=== PATIENT | male | born 1960 | race Caucasian/White ===

== ENCOUNTER 2018-06-13 15:45 | Outpatient (RCR) | payer MEDICAID | END 2018-07-17 | disposition home or self-care (01) | LOC: WSST | DX: R41.3 Other amnesia (principal); F43.22 Adjustment disorder with anxiety ==

== ENCOUNTER → 2019-11-21 | Outpatient (CLI) | payer OTHER | LOC: COL.RAD 14:23 | DX: E11.42 Type 2 diabetes mellitus with diabetic polyneuropathy (principal); G31.84 Mild cognitive impairment of uncertain or unknown etiology; M25.531 Pain in right wrist; M25.532 Pain in left wrist; M51.17 Intervertebral disc disorders with radiculopathy, lumbosacral region; M48.07 Spinal stenosis, lumbosacral region ==

== ENCOUNTER → 2019-12-31 | Outpatient (CLI) | payer OTHER | LOC: MHCPAIN 14:26 | DX: M53.3 Sacrococcygeal disorders, not elsewhere classified (principal); M47.27 Other spondylosis with radiculopathy, lumbosacral region; E11.9 Type 2 diabetes mellitus without complications; Z79.84 Long term (current) use of oral hypoglycemic drugs | CPT/HCPCS: G0463 ==

== ENCOUNTER → 2020-05-20 | Outpatient (CLI) | payer OTHER | LOC: MHCPAIN 12:39 | DX: M47.817 Spondylosis without myelopathy or radiculopathy, lumbosacral region (principal); M54.5 Low back pain; M53.3 Sacrococcygeal disorders, not elsewhere classified; G89.29 Other chronic pain | CPT/HCPCS: G0463 ==